=== PATIENT | female | born 1980 | race Caucasian/White ===

== ENCOUNTER 2017-02-04 18:48 | Emergency (ER) | payer OTHER ==
[~2017-02-04] VITALS: Ht 154.9 cm; Wt 110.5 kg
[~2017-02-04 18:48] MED LIST: FIORICET PO; IBUP200C11 PO; ONDA4TAB14 PO
[2017-02-04 19:23] VITALS: Ht 154.9 cm; Wt 110.5 kg
[2017-02-04] MEDS ORDERED: ONDANSETRON 4 MG INJ IV STA (19:44)
[2017-02-04] MEDS ORDERED: morphine 4 MG/ML VIAL IV STA (19:44)
--- NOTE | 2017-02-04 19:48 | ERD ---
ER Documentation Chief Complaint Date/Time DATE: 02/04/17 TIME: 19:46 Chief Complaint NO BM X 1 WEEK. N/V TODAY HPI 26-year-old female presents here in emergency department for complaints of abdominal pain started today and nausea vomiting, patient has no bowel movement for one week. Patient has history of abdominal surgery years ago with a tumor removal. She describes the pain as throbbing, 8/10 scale, accompanied with nausea vomiting. Patient denies any fever or chills. She denies hematuria or dysuria. Patient denies any flank pain. ROS All systems reviewed and are negative except as per history of present illness. Medications Home Meds Active Scripts Ondansetron (Ondansetron Odt) 4 Mg Tab.rapdis, 4 MG PO Q8 Y for NAUSEA AND/OR VOMITING, #30 TAB Prov:BILL HERRERA NP 08/14/16 Acetamin/Butalbital/Caffeine* (Fioricet*) [id number] Tab, 1 TAB PO Q6H Y for PAIN, #30 TAB Prov:BILL HERRERA NP 08/14/16 Reported Medications Ibuprofen* (Advil*) Unknown Strength Capsule, PO Q6H Y for PAIN, CAP 08/14/16 Allergies Allergies: Coded Allergies: No Known Drug Allergy (Verified Allergy, Mild, 12/25/15) PMhx/Soc History of Surgery: Yes (right thigh tumor excision, right abominal surgery ) Anesthesia Reaction: No Hx Neurological Disorder: No Hx Respiratory Disorders: No Hx Cardiac Disorders: No Hx Psychiatric Problems: No Hx Miscellaneous Medical Probl: No Hx Alcohol Use: No Hx Substance Use: No Hx Tobacco Use: No Smoking Status: Never smoker FmHx Family History: No coronary disease, No diabetes, No other Physical Exam Vitals Vital Signs Date Time Temp Pulse Resp B/P Pulse Ox O2 Delivery O2 Flow Rate FiO2 02/04/17 19:23 99.3 95 16 144/75 99 Physical Exam GENERAL: The patient is well developed and appropriate for usual state of health, in no apparent distress. CHEST: Clear to auscultation bilaterally. There are no rales, wheezes or rhonchi. HEART: Regular rate and rhythm. No murmurs, clicks, rubs or gallops. No S3 or S4. ABDOMEN: Soft, generalized tenderness noted. Good bowel sounds. No rebound or guarding. No gross peritonitis. No gross organomegaly or masses. BACK: No midline or flank tenderness. EXTREMITIES: Equal pulses bilaterally. There is no peripheral clubbing, cyanosis or edema. No focal swelling or erythema. Full range of motion. Grossly neurovascularly intact. NEURO: Alert and oriented. Cranial nerves 2-12 intact. Motor strength in all 4 extremities with 5/5 strength. Sensation grossly intact. Normal speech and gait. SKIN: There is no apparent rash or petechia. The skin is warm and dry. HEMATOLOGIC AND LYMPHATIC: There is no evidence of excessive bruising or lymphedema. No gross cervical, axillary, or inguinal lymphadenopathy. Result Diagram: 02/04/17200602/04/172006 Results 24 hrs Laboratory Tests Test 02/04/17 20:07 02/04/17 20:12 White Blood Count 11.210^3/ul Red Blood Count 4.5510^6/ul Hemoglobin 13.2g/dl Hematocrit 39.0% Mean Corpuscular Volume 85.7fl Mean Corpuscular Hemoglobin 29.0pg Mean Corpuscular Hemoglobin Concent 33.8g/dl Red Cell Distribution Width 12.4% Platelet Count 74202^3/UL Mean Platelet Volume 9.2fl Neutrophils % 55.7% Lymphocytes % 33.2% Monocytes % 6.9% Eosinophils % 3.4% Basophils % 0.5% Nucleated Red Blood Cells % 0.0/100WBC Neutrophils # 6.210^3/ul Lymphocytes # 3.710^3/ul Monocytes # 0.810^3/ul Eosinophils # 0.410^3/ul Basophils # 0.110^3/ul Nucleated Red Blood Cells # 0.010^3/ul Sodium Level 140mmol/L Potassium Level 3.5mmol/L Chloride Level 102mmol/L Carbon Dioxide Level 25mmol/L Anion Gap 17 Blood Urea Nitrogen 14mg/dl Creatinine 0.77mg/dl Glucose Level 124mg/dl Calcium Level 9.0mg/dl Total Bilirubin 0.4mg/dl Direct Bilirubin 0.00mg/dl Indirect Bilirubin 0.4mg/dl Aspartate Amino Transf (AST/SGOT) 32IU/L Alanine Aminotransferase (ALT/SGPT) 61IU/L Alkaline Phosphatase 88IU/L Total Protein 7.2g/dl Albumin 4.0g/dl Globulin 3.20g/dl Albumin/Globulin Ratio 1.25 Lipase 51U/L Urine Color LT. YELLOW Urine Clarity CLEAR Urine pH 8.5 Urine Specific [place] 1.015 Urine Ketones NEGATIVE Urine Nitrite NEGATIVE Urine Bilirubin NEGATIVE Urine Urobilinogen 1.0 E.U./dL Urine Leukocyte Esterase TRACE Urine Microscopic RBC 0-2/HPF Urine Microscopic WBC 5-10/HPF Urine Squamous Epithelial Cells MANY Urine Hemoglobin TRACE Urine Glucose NEGATIVE% Urine Total Protein NEGATIVE Current Medications Medications (Trade) Dose Ordered Sig/Marcelle Route PRN Reason Start Time Stop Time Status Last Admin Dose Admin Morphine Sulfate (morphine) 4 mg ONCE STAT IV 02/04/17 19:44 02/04/17 19:46 DC 02/04/17 20:26 Ondansetron HCl (Zofran Inj) 4 mg ONCE STAT IV 02/04/17 19:44 02/04/17 19:46 DC 02/04/17 20:26 Patient was given medication for pain here in emergency department, after treatment, patient verbalized feeling much better. Patient's pain is improved.Normal saline IV bolus was given here in emergency department for rehydration, patient tolerated IV fluids.Patient was given Zofran here in the emergency department. After treatment, patient was able to tolerate po fluids here in the emergency department without any vomiting. There is no signs and symptoms of dehydration. PROCEDURE: CT Abdomen and Pelvis without contrast. CLINICAL INDICATION: Abdominal pain, constipation. TECHNIQUE: A CT scan of the abdomen and pelvis was performed without intravenous contrast. Coronal and sagittal reformatted images were generated. Images were reviewed on a high-resolution PACS workstation. CTDIvol: 22.80 mGy. DLP: 1339.22 mGy-cm. One or more of the following dose reduction techniques were used: - Automated exposure control. - Adjustment of the mA and/or kV according to patient size. - Use of iterative reconstruction technique. COMPARISON: None. FINDINGS: The lung bases are clear. Evaluation of the abdominal and pelvic viscera is limited by the lack of oral and intravenous contrast. The liver is diffusely hypodense, consistent with fatty infiltration. The gallbladder is normal in appearance. The common bile duct is not dilated. The spleen is not enlarged. No pancreatic lesion is identified and there is no pancreatic ductal dilatation. The adrenal glands are unremarkable. The kidneys are normal in size. There is no perinephric fat stranding. No hydronephrosis is seen. No urinary stone is identified. There is a 1.1 cm right retroperitoneal cyst, nonspecific but likely benign. The small and large bowel are normal in caliber. There is no bowel wall thickening. The appendix is normal. The urinary bladder is unremarkable. The pelvic organs are within normal limits. No lymphadenopathy is identified. There is no ascites. No pneumoperitoneum is seen. There are no arterial calcifications. No suspicious osseous lesion is idenitified. IMPRESSION: 1. No inflammation, mass, or lymphadenopathy. 2. Normal appendix. 3. No obstructive uropathy or urinary stone. 4. Fatty infiltration of the liver. RPTAT: HTAR .Martin Calhoun MD, MD Date Time Electronically viewed and signed by .Martin Calhoun MD, on 02/04/2017 21:01 .R/ CC: BILL HERRERA BLUEPRINTER Procedures/MDM Medical Decision Making: Patient's abdominal pain nonspecific at this time, no bowel obstruction noted, no other abdominal emergencies noted at this time. No leukocytosis, no bandemia. Conjunctivae are. There is low suspicion for abdominal emergencies at this time. Patients abdominal exam is normal at this time. Patients radiology exam does not show any abdominal emergencies at this time. There is low suspicion for appendicitis, cholecystitis, abdominal aortic aneurysms or peritonitis at this time. There is low suspicion for sepsis. Patient appears well and is hemodynamically stable. Disposition: Home. Condition: Stable Prescription Zofran, MiraLAX, Colace, tramadol Instructions: Patient is advised to take medications as prescribed. Patient is advised to rest, increase fluid intake and do brat diet for next 1-2 days and progress as tolerated. Patient is advised that if symptoms are worse, severe abdominal pain, uncontrolled vomiting, high fever, severe flank pain, worst signs and symptoms, to return to the emergency department immediately. Otherwise, patient can follow up with primary care doctor in 5-7 days. Departure Diagnosis: Primary Impression: Constipation Constipation type: unspecified constipation type Qualified Code: K59.00 - Constipation, unspecified constipation type Additional Impressions: Abdominal pain Abdominal location: generalized Qualified Code: R10.84 - Generalized abdominal pain Vomiting Vomiting type: unspecified Vomiting Intractability: unspecified Nausea presence: unspecified Qualified Code: R11.10 - Vomiting, intractability of vomiting not specified, presence of nausea not specified, unspecified vomiting type Condition: Stable Patient Instructions: Constipation (Adult) Additional Instructions: Patient is advised to take medications as prescribed. Patient is advised to rest, increase fluid intake and do brat diet for next 1-2 days and progress as tolerated. Patient is advised that if symptoms are worse, severe abdominal pain , uncontrolled vomiting, high fever, severe flank pain, worst signs and symptoms , to return to the emergency department immediately. Otherwise, patient can follow up with primary care doctor in 5-7 days. BILL HERRERA NP Feb 04, 2017 19:48
[2017-02-04 20:22] LABS: ADD SCAN DIFF NO
[2017-02-04 20:28] LABS: BASOPHIL # 0.1 10^3/ul (0.0-0.1); BASOPHILS % 0.5 % (0.0-2.0); EOSINOPHILS # 0.4 10^3/ul (0.0-0.5); EOSINOPHILS % 3.4 % (0.0-7.0); HEMOGLOBIN 13.2 g/dl (12.0-16.0); LYMPHOCYTES # 3.7 10^3/ul (0.8-2.9); LYMPHOCYTES % 33.2 % (15.0-51.0); MEAN CORPUSCULAR HGB CONC 33.8 g/dl (32.0-37.0); MEAN CORPUSCULAR VOLUME 85.7 fl (82.0-101.0); MEAN PLATELET VOLUME 9.2 fl (7.4-10.4); MONOCYTE # 0.8 10^3/ul (0.3-0.9); MONOCYTES % 6.9 % (0.0-11.0); NEUTROPHIL # 6.2 10^3/ul (1.6-7.5); NEUTROPHILS % 55.7 % (39.0-77.0); PLATELET COUNT 333 10^3/UL (140-415); RED BLOOD COUNT 4.55 10^6/ul (4.20-5.40); RED CELL DISTRIBUTION WIDTH 12.4 % (11.5-14.5); WHITE BLOOD COUNT 11.2 10^3/ul (4.8-10.8)
[2017-02-04 20:33] LABS: ADD UMIC YES; URINE BILIRUBIN (Dip) NEGATIVE (NEGATIVE); URINE BLOOD (Dip) TRACE (NEGATIVE); URINE COLOR LT. YELLOW (YELLOW); URINE GLUCOSE (Dip) NEGATIVE (NEGATIVE); URINE KETONES (Dip) NEGATIVE (NEGATIVE); URINE LEUKOCYTE ESTERASE (Dip) TRACE (NEGATIVE); URINE NITRITE (Dip) NEGATIVE (NEGATIVE); URINE TOTAL PROTEIN (Dip) NEGATIVE (NEGATIVE); URINE UROBILINOGEN (Dip) 1.0 E.U./dL (0.1-1.0)
[2017-02-04 20:34] LABS: POTASSIUM 3.5 mmol/L (3.5-5.1)
[2017-02-04 20:36] LABS: BILIRUBIN,INDIRECT 0.4 mg/dl (0-1.1); BILIRUBIN,TOTAL 0.4 mg/dl (0.2-1.3); CREATININE 0.77 mg/dl (0.44-1.00)
[2017-02-04 20:37] LABS: ALBUMIN/GLOBULIN RATIO 1.25; TOTAL PROTEIN 7.2 g/dl (6.1-8.1)
[2017-02-04 20:44] LABS: SQUAMOUS EPITHELIAL CELL,UR MANY; URINE RBCS 0-2 /HPF (0)
--- NOTE | 2017-02-04 21:02 | RADRPT ---
PROCEDURE: CT Abdomen and Pelvis without contrast. CLINICAL INDICATION: Abdominal pain, constipation. TECHNIQUE: A CT scan of the abdomen and pelvis was performed without intravenous contrast. Enrique l and sagittal reformatted images were generated. Images were reviewed on a high-resolution PACS wor kstation. CTDIvol: 22.80 mGy. DLP: 1339.22 mGy-cm. One or more of the following dose reduction techniques were used: - Automated exposure control. - Adjustment of the mA and/or kV according to patient size. - Use of iterative reconstruction technique. COMPARISON: None. FINDINGS: The lung bases are clear. Evaluation of the abdominal and pelvic viscera is limited by the lack of oral and intravenous contra st. The liver is diffusely hypodense, consistent with fatty infiltration. The gallbladder is normal in appearance. The common bile duct is not dilated. The spleen is not enlarged. No pancreatic lesion is identified and there is no pancreatic ductal dilatation. The adrenal glands are unremarkable. The kidneys are normal in size. There is no perinephric fat stranding. No hydronephrosis is seen. No urinary stone is identified. There is a 1.1 cm right retroperitoneal cyst, nonspecific but likely b enign. The small and large bowel are normal in caliber. There is no bowel wall thickening. The appendix is normal. The urinary bladder is unremarkable. The pelvic organs are within normal limits. No lymphadenopathy is identified. There is no ascites. No pneumoperitoneum is seen. There are no art erial calcifications. No suspicious osseous lesion is idenitified. IMPRESSION: 1. No inflammation, mass, or lymphadenopathy. 2. Normal appendix. 3. No obstructive uropathy or urinary stone. 4. Fatty infiltration of the liver. RPTAT: HTAR .Martin Calhoun MD, MD Date Time Electronically viewed and signed by .Martin Calhoun MD, on 02/04/2017 21:01 .R/
[2017-02-04] MEDS ORDERED: POLY17PO6 PO (21:16)
[2017-02-04] MEDS ORDERED: TRAM50TA2 PO (21:16)
[2017-02-04] MEDS ORDERED: ONDA4TAB14 PO (21:16)
[2017-02-04] MEDS ORDERED: DOCU-144 PO (21:16)
[2017-02-04 21:39] VITALS: BP 132/75; PULSE 85; RESP 16; TEMP 99.3
== END 2017-02-04 21:40 | disposition home or self-care (01) ==
LOC: FTE 18:48
DX: K59.00 Constipation, unspecified (principal); R10.84 Generalized abdominal pain; R11.10 Vomiting, unspecified
CPT/HCPCS: 36415; 74176; 80053; 81001; 81003; 83690; 85025; 96374; 96375; J2270; J2405; Z7502

== ENCOUNTER 2018-01-10 14:06 | Emergency (ER) | END 2018-01-10 20:30 | disposition home or self-care (01) ==

== ENCOUNTER 2018-03-03 15:30 | Emergency (ER) | END 2018-03-03 17:05 | disposition home or self-care (01) ==

== ENCOUNTER 2018-07-01 08:15 | Emergency (ER) | END 2018-07-01 10:58 | disposition home or self-care (01) ==

== ENCOUNTER 2018-10-22 18:23 | Emergency (ER) | payer OTHER ==
[~2018-10-22] VITALS: Ht 154.9 cm; Wt 107.3 kg
[~2018-10-22 18:23] MED LIST changes: +ABCC1C PO; +AMOX1TAB10 PO; +DOCU-144 PO; +IBUP800T48 PO; +LORA-441 PO; +LORA1TAB PO; +POLY17PO6 PO; +TRAM50TA2 PO
[2018-10-22 18:34] VITALS: BP 140/81; PULSE 102; RESP 20; Ht 154.9 cm; Wt 107.3 kg
--- NOTE | 2018-10-22 20:34 | ERD ---
ER Documentation Chief Complaint Chief Complaint c/o generalize body weakness x 1 week, poor appetite HPI This is a 37-year-old female who presents here in the emergency department with multiple complaints including loss of appetite, generalized weakness for about a week. Insisting blood works. LMP: Stated that it was a week ago. A0. Denies headache, head injury, loss of consciousness, dizziness, neck pain, neck stiffness, throat pain, difficulty swallowing, difficulty breathing lying flat, shoulder pain, chest pain, back pain, abdominal pain, nausea, vomiting, constipation, diarrhea, urinary symptoms, or possibility being , loss of bowel and bladder control, trauma, injury, falls, difficulty w alking due to pain, numbness or tingling sensation, calf pain, recent travel, recent major surgery in the last 3 weeks, calf pain, recent long travel, recent exposure to any illness, recent antibiotic use in the last 3 months, fever, chills, seizures. Past medical history: Denies. Surgical history: Denies. Social: Denies smoking, use of alcoholic beverages, use of illegal drugs. ROS All systems reviewed and are negative except as per history of present illness. Medications Home Meds Active Scripts Acetaminophen* (Tylophen*) 500 Mg Capsule, 1 CAP PO Q6H PRN for PAIN AND OR ELEVATED TEMP, #20 CAP Prov:PASILAOSMIN TAMAR F 10/22/18 Cephalexin* (Keflex*) 500 Mg Capsule, 500 MG PO TID for 7 Days, CAP Prov:PASILABANOSMINAR F 10/22/18 Lorazepam* (Lorazepam*) 1 Mg Tablet, 1 MG PO Q8H PRN for ANXIETY, #10 TAB Prov:BEBETO MOMIN PA-C 07/01/18 Lorazepam* (Ativan*) 0.5 Mg Tablet, 0.5 MG PO Q8, #10 TAB Prov:OSMAN GUARDADO PA-C 01/10/18 Ylrahuzdqhenu-Bctzxxprla-Ohpiqbeu-Codeine* (Fioricet w/Codeine*) [id number] Cap, 1 CAP PO Q4H PRN for PAIN LEVEL 1-5, #10 CAP Prov:PASILAOSMIN TAMAR F 06/24/17 Ibuprofen* (Motrin*) 800 Mg Tab, 800 MG PO Q8 PRN for PAIN AND OR ELEVATED TEMP, #30 TAB Prov:EUNICE YANCEY 06/24/17 Amoxicillin/Potassium Clav (Amox-Clav 875-125 mg Tablet) 875-125 mg Tab, 1 TAB PO BID for 7 Days, #14 TAB Prov:EUNICE YANCEY 06/24/17 Tramadol HCl (Tramadol HCl) 50 Mg Tablet, 50 MG PO Q6 PRN for SEVERE PAIN LEVEL 7-10, #20 TAB Prov:BILL HERRERA NP 02/04/17 Ondansetron (Ondansetron Odt) 4 Mg Tab.rapdis, 4 MG PO Q8 PRN for NAUSEA AND/OR VOMITING, #30 TAB Prov:BILL HERRERA NP 02/04/17 Docusate Sodium* (Colace*) 100 Mg Capsule, 100 MG PO TID, #30 CAP Prov:BILL HERRERA NP 02/04/17 Polyethylene Glycol* (Miralax*) 17 Gm Powd.pack, 17 GM PO DAILY, #7 Prov:BILL HERRERA NP 02/04/17 Ondansetron (Ondansetron Odt) 4 Mg Tab.rapdis, 4 MG PO Q8 PRN for NAUSEA AND/OR VOMITING, #30 TAB Prov:BILL HERRERA NP 08/14/16 Acetamin/Butalbital/Caffeine* (Fioricet*) [id number] Tab, 1 TAB PO Q6H PRN for PAIN, #30 TAB Prov:BILL HERRERA NP 08/14/16 Reported Medications Ibuprofen* (Advil*) Unknown Strength Capsule, PO Q6H PRN for PAIN, CAP 08/14/16 Allergies Allergies: Coded Allergies: No Known Drug Allergy (Verified Allergy, Mild, 10/22/18) PMhx/Soc History of Surgery: Yes (right thigh tumor excision, right abominal surgery ) Anesthesia Reaction: No Hx Neurological Disorder: No Hx Respiratory Disorders: No Hx Cardiac Disorders: No Hx Psychiatric Problems: No Hx Miscellaneous Medical Probl: Yes (DM) Hx Alcohol Use: No Hx Substance Use: No Hx Tobacco Use: No Smoking Status: Never smoker Physical Exam Vitals Vital Signs Date Temp Pulse Resp B/P (MAP) Pulse Ox O2 O2 Flow FiO2 Time Delivery Rate 10/22/18 99.6 102 20 140/81 98 18:34 (100) Physical Exam Const: No acute distress Head: Atraumatic Eyes: Normal Conjunctiva ENT: Normal External Ears, Nose and Mouth. Neck: Full range of motion. No meningismus. No nuchal rigidity. No signs of meningeal irritation. Resp: Clear to auscultation bilaterally Cardio: Regular rate and rhythm, no murmurs Abd: Soft, non tender, non distended. Normal bowel sounds Skin: No petechiae or rashes. No vesicular lesions. No skin tenting. No signs of dehydration. No hair loss noted. Back: No midline or flank tenderness Ext: No cyanosis, or edema Neur: Awake and alert. No neurological deficits. Psych: Normal Mood and Affect. Denies auditory/visual halluc inations/delusions. Not suicidal. Not homicidal. Has the capacity to decide for herself. Has good support system at home. Result Diagram: 10/22/18201610/22/182016 Results 24 hrs Laboratory Tests Test 10/22/18 20:17 10/22/18 20:39 White Blood Count 10.8 10^3/ul Red Blood Count 5.09 10^6/ul Hemoglobin 14.7 g/dl Hematocrit 44.2 % Mean Corpuscular Volume 86.8 fl Mean Corpuscular Hemoglobin 28.9 pg Mean Corpuscular Hemoglobin Concent 33.3 g/dl Red Cell Distribution Width 12.0 % Platelet Count 422 10^3/UL Mean Platelet Volume 9.1 fl Immature Granulocytes % 0.400 % Neutrophils % 48.3 % Lymphocytes % 41.6 % Monocytes % 4.9 % Eosinophils % 4.1 % Basophils % 0.7 % Nucleated Red Blood Cells % 0.0 /100WBC Immature Granulocytes # 0.040 10^3/ul Neutrophils # 5.2 10^3/ul Lymphocytes # 4.5 10^3/ul Monocytes # 0.5 10^3/ul Eosinophils # 0.4 10^3/ul Basophils # 0.1 10^3/ul Nucleated Red Blood Cells # 0.0 10^3/ul Urine Color YELLOW Urine Clarity CLOUDY Urine pH 7.0 Urine Specific [place] 1.023 Urine Ketones NEGATIVE mg/dL Urine Nitrite NEGATIVE mg/dL Urine Bilirubin NEGATIVE mg/dL Urine Urobilinogen 2+ mg/dL Urine Leukocyte Esterase 2+ Julio Cesar/ul Urine Microscopic RBC 21 /HPF Urine Microscopic WBC 25 /HPF Urine Squamous Epithelial Cells MANY /HPF Urine Bacteria FEW /HPF Urine Mucus MODERATE /HPF Urine Hemoglobin 1+ mg/dL Urine Glucose NEGATIVE mg/dL Urine Total Protein 1+ mg/dl Sodium Level 144 mmol/L Potassium Level 4.4 mmol/L Chloride Level 102 mmol/L Carbon Dioxide Level 29 mmol/L Anion Gap 13 Blood Urea Nitrogen 11 mg/dl Creatinine 0.55 mg/dl Est Glomerular Filtrat Rate mL/min > 60 mL/min Glucose Level 106 mg/dl Calcium Level 9.9 mg/dl Total Bilirubin 0.5 mg/dl Direct Bilirubin 0.00 mg/dl Indirect Bilirubin 0.5 mg/dl Aspartate Amino Transf (AST/SGOT) 37 IU/L Alanine Aminotransferase (ALT/SGPT) 53 IU/L Alkaline Phosphatase 105 IU/L Total Protein 7.4 g/dl Albumin 4.6 g/dl Globulin 2.80 g/dl Albumin/Globulin Ratio 1.64 Thyroid Stimulating Hormone (TSH) 3.620 MIU/L Free Thyroxine 0.96 ng/dl Free Thyroxine Index 2.67 ug/ml Thyroxine (T4) 9.5 ug/dl Free Triiodothyronine (T3) pg/mL 3.80 pg/ml Triiodothyronine (T3) Uptake 28.1 % POC Beta HCG, Qualitative NEGATIVE Procedures/MDM Diagnostic tests: POC urine : Negative. Urinalysis: UTI. Culture urine: Sent. Blood works: Reviewed. Treatment: Refuses. Re-evaluation: Stated that she feels much better at this time and that she is ready to go home. Differential diagnosis I have low suspicion for sepsis, thyroid storm, thyroid toxicosis, Henry's disease, hypoglycemia, hyperglycemia. Final diagnosis: UTI. Prescription: Keflex. Tylenol. Follow-up with PCP in the next 24-48 hours. PCP to refer patient to milk pickup driver in the next 3-4 days. Come back here in the emergency department for any new symptoms or any worsening symptoms. All questions and concerns were answered. Patient and family members verbalized understanding and agreed with plan of care. Hemodynamically stable on discharge. Departure Diagnosis: Primary Impression: UTI (urinary tract infection) Condition: Stable Additional Instructions: Follow-up with PCP in the next 24-48 hours. PCP to refer patient to milk pickup driver in the next 3-4 days. Come back here in the emergency department for any new symptoms or any worsening symptoms. EUNICE YANCEY Oct 22, 2018 20:34
[2018-10-22] MEDS ORDERED: ACET500C5 PO (22:18)
[2018-10-22] MEDS ORDERED: CEPH-443 PO (22:18)
== END 2018-10-22 22:35 | disposition home or self-care (01) ==
LOC: FTE 18:23
DX: N39.0 Urinary tract infection, site not specified (principal); E11.9 Type 2 diabetes mellitus without complications
CPT/HCPCS: 80053; 81001; 81025; 84436; 84439; 84443; 84479; 84481; 85025; 87086; 99283

== ENCOUNTER 2019-01-09 09:44 | Emergency (ER) | payer OTHER ==
[~2019-01-09] VITALS: Ht 157.5 cm; Wt 108.7 kg
[~2019-01-09 09:44] MED LIST changes: +ACET500C5 PO; +CEPH-443 PO; +CYCL10TA7 PO; +MECL12.574 PO
[2019-01-09 09:47] VITALS: Ht 157.5 cm; Wt 108.7 kg
[2019-01-09] MEDS ORDERED: traMADol 50 MG TAB PO ONE ×2 (11:00→13:30)
[2019-01-09] MEDS ORDERED: GUAIFENESIN/DM 5ML CUP PO ONE (11:00)
[2019-01-09] MEDS ORDERED: ALBUTEROL/IPRATROPIUM (NEB) 3 ML AMP HHN STA (11:35)
--- NOTE | 2019-01-09 11:37 | ERD ---
ER Documentation Chief Complaint Chief Complaint cough and chest congestion x 2 weeks HPI 38-year-old female with past medical history of pre-diabetes with no other surgical history who presents with a 2-week complaint of persistent cough and chest congestion. She reports subjective fevers and states she feels she is wheezing. She also just describes chest discomfort which is pleuritic in nature made worse by deep breathing and cough. She states cough is worse at night. Reports apneic spells at night but has never been diagnosed with ANNE. These symptoms proceed her current complaint of cough and congestion chest congestion, stating she has been experiencing apneic spells at night before she will wake up middle night for about a year. Has not been referred for outpatient sleep study. She denies history of smoking. She has not been on OCP's. She has not travelled recently or been immobilized. She otherwise denies BLANCAS, chest pain, nausea or vomiting, abdominal pain, diarrhea. ROS All systems reviewed and are negative except as per history of present illness. Medications Home Meds Active Scripts Fluticasone Propionate* (Flovent* HFA 110) 12 Gm Inha, 1 PUFF INHALATION BID for 14 Days, #1 INHALER Prov:LALY FITCH PA-C 01/09/19 Guaifenesin* (Robitussin*) 100 Mg/5 Ml Syrup, 200 MG PO Q6H PRN for COUGH for 7 Days, ML Prov:LALY FITCH PA-C 01/09/19 Cyclobenzaprine Hcl* (Cyclobenzaprine Hcl*) 10 Mg Tablet, 10 MG PO TID, #15 TAB Prov:JUANA PANTOJA PA-C 12/14/18 Meclizine Hcl* (Antivert*) 12.5 Mg Tab, 12.5 MG PO Q6H PRN for DIZZINESS, #20 TAB Prov:JUANA PANTOJA PA-C 12/14/18 Acetaminophen* (Tylophen*) 500 Mg Capsule, 1 CAP PO Q6H PRN for PAIN AND OR ELEVATED TEMP, #20 CAP Prov:PASILABAN,KLAR F 10/22/18 Cephalexin* (Keflex*) 500 Mg Capsule, 500 MG PO TID for 7 Days, CAP Prov:PASILABAN,KLAR F 10/22/18 Lorazepam* (Lorazepam*) 1 Mg Tablet, 1 MG PO Q8H PRN for ANXIETY, #10 TAB Prov:BEBETO MOMIN PA-C 07/01/18 Lorazepam* (Ativan*) 0.5 Mg Tablet, 0.5 MG PO Q8, #10 TAB Prov:OSMAN GUARDADO PA-C 01/10/18 Lrtogrsvuqlzu-Luxldefyld-Ugidtdul-Codeine* (Fioricet w/Codeine*) [id number] Cap, 1 CAP PO Q4H PRN for PAIN LEVEL 1-5, #10 CAP Prov:EUNICE YANCEY 06/24/17 Ibuprofen* (Motrin*) 800 Mg Tab, 800 MG PO Q8 PRN for PAIN AND OR ELEVATED TEMP, #30 TAB Prov:EUNICE YANCEY 06/24/17 Amoxicillin/Potassium Clav (Amox-Clav 875-125 mg Tablet) 875-125 mg Tab, 1 TAB PO BID for 7 Days, #14 TAB Prov:EUNICE YANCEY 06/24/17 Tramadol HCl (Tramadol HCl) 50 Mg Tablet, 50 MG PO Q6 PRN for SEVERE PAIN LEVEL 7-10, #20 TAB Prov:BILL HERRERA NP 02/04/17 Ondansetron (Ondansetron Odt) 4 Mg Tab.rapdis, 4 MG PO Q8 PRN for NAUSEA AND/OR VOMITING, #30 TAB Prov:BILL HERRERA NP 02/04/17 Docusate Sodium* (Colace*) 100 Mg Capsule, 100 MG PO TID, #30 CAP Prov:BILL HERRERA NP 02/04/17 Polyethylene Glycol* (Miralax*) 17 Gm Powd.pack, 17 GM PO DAILY, #7 Prov:BILL HERRERA NP 02/04/17 Ondansetron (Ondansetron Odt) 4 Mg Tab.rapdis, 4 MG PO Q8 PRN for NAUSEA AND/OR VOMITING, #30 TAB Prov:BILL HERRERA NP 08/14/16 Acetamin/Butalbital/Caffeine* (Fioricet*) [id number] Tab, 1 TAB PO Q6H PRN for PAIN, #30 TAB Prov:BILL HERRERA MANUFACTURING TECH[employer]OLOGIST 08/14/16 Reported Medications Ibuprofen* (Advil*) Unknown Strength Capsule, PO Q6H PRN for PAIN, CAP 08/14/16 Allergies Allergies: Coded Allergies: No Known Drug Allergy (Verified Allergy, Mild, 12/14/18) PMhx/Soc History of Surgery: Yes (right thigh tumor excision, right abominal surgery ) Anesthesia Reaction: No Hx Neurological Disorder: No Hx Respiratory Disorders: No Hx Cardiac Disorders: No Hx Psychiatric Problems: No Hx Miscellaneous Medical Probl: Yes (DM) Hx Alcohol Use: No Hx Substance Use: No Hx Tobacco Use: No Smoking Status: Never smoker FmHx Family History: No diabetes, No coronary disease, No other Physical Exam Vitals Vital Signs Date Temp Pulse Resp B/P (MAP) Pulse Ox O2 O2 Flow FiO2 Time Delivery Rate 01/09/19 98.1 103 17 110/68 97 14:18 (82) 01/09/19 88 19 96 21 13:15 01/09/19 83 18 95 21 12:20 01/09/19 98.8 98 18 121/71 97 09:47 (88) Physical Exam I have reviewed the triage vital signs. Const: Well nourished, well developed, appears stated age Eyes: PERRL, no conjunctival injection HENT: NCAT, Neck supple without meningismus CV: RRR, Warm, well-perfused extremities RESP: some upper air way sounds, not wheezing classically, moving air well, no rales, rhonci GI: soft, non-tender, non-distended, no masses MSK: No gross deformities appreciated Skin: Warm, dry. No rashes Neuro: Alert, button bradder II-XII grossly intact. Sensation and motor function of e xtremities grossly intact. Psych: Appropriate mood and affect. Results 24 hrs Current Medications Medications Dose Sig/Marcelle Start Time Status Last (Trade) Ordered Route PRN Stop Time Admin Dose Reason Admin 10 ml ONCE ONCE 01/09/19 DC 01/09/19 Guaifenesin/ PO 11:00 01/09/19 11:18 Dextromethorp 11:01 romo (Robitussin Dm Liquid Cup) Tramadol 50 mg ONCE ONCE 01/09/19 DC 01/09/19 HCl PO 11:00 01/09/19 11:17 (Ultram) 13:41 Albuterol/ 3 ml ONCE STAT 01/09/19 DC 01/09/19 Ipratropium HHN 11:35 01/09/19 12:20 (Duoneb) 11:37 1.25 mg ONCE ONCE 01/09/19 DC 01/09/19 Levalbuterol HHN 13:00 01/09/19 13:14 (Xopenex 13:01 Neb) Tramadol 50 mg ONCE ONCE 01/09/19 DC HCl PO 13:30 01/09/19 (Ultram) 13:31 Procedures/MDM The patient's clinical presentation is very consistent with an acute viral syndrome. No evidence of pneumonia on xray. Her oxygen saturations have been stable. No fevers. No risk facors The patient is well-appearing without respiratory distress. Normal oxygen saturation. X-ray imaging not indicated. No indication for Tamiflu. The patient does not exhibit any clinical signs or symptoms concerning for serious bacterial infection or systemic illness. Based on history and clinical exam findings the patient does not appear to have evidence of pneumonia, strep pharyngitis, urinary tract infection, bacteremia, sepsis, or meningitis. PE is highly unlikely given symptoms and work up. For these reasons I do not believe it is necessary to obtain laboratory testing or diagnostic imaging. I believe it would be appropriate for symptom control, and close outpatient primary care follow-up. ED course: antitussive nebs pain control Chest xray without acute findings We discussed follow up with the patient's primary care doctor within 24 to 48 hours as needed. We also discussed return to the emergency room for worsening symptoms or worsening condition. She has bee instructed to follow up closely with PMD regarding ANNE/OHS workup. Departure Diagnosis: Primary Impression: Viral syndrome Condition: Stable Patient Instructions: Adult Self-Care for Colds, Sleep Apnea, Obstructive (Adult) Referrals: [facility] LALY FITCH PA-C Jan 09, 2019 11:36 BALA ONEIL DO Jan 12, 2019 20:09
[2019-01-09] MEDS ORDERED: GUAI-637 PO (12:05)
[2019-01-09] MEDS ORDERED: LEVALBUTEROL (NEB) 1.25 MG/0.5 ML AMP HHN ONE (13:00)
[2019-01-09] MEDS ORDERED: FLOV110 INHALATION (13:50)
[2019-01-09 14:18] VITALS: BP 110/68; PULSE 103; RESP 17
== END 2019-01-09 14:19 | disposition home or self-care (01) ==
LOC: FTE 09:44
DX: B34.9 Viral infection, unspecified (principal); E11.9 Type 2 diabetes mellitus without complications
CPT/HCPCS: 71046; 94640; 94664; Z7502; Z7610

== ENCOUNTER 2019-04-30 18:55 | Emergency (ER) | payer OTHER ==
[~2019-04-30] VITALS: Ht 154.9 cm; Wt 108.8 kg
[~2019-04-30 18:55] MED LIST changes: +FLOV110 INHALATION; +GUAI-637 PO
[2019-04-30 18:59] VITALS: Ht 154.9 cm; Wt 108.8 kg
[2019-04-30] MEDS ORDERED: SOD CHLORIDE 0.9% 1,000 ML IV STA (21:10)
[2019-04-30] MEDS ORDERED: ONDANSETRON 4 MG INJ IV STA (21:10)
[2019-04-30] MEDS ORDERED: MECL12.574 PO (22:26)
[2019-04-30] MEDS ORDERED: LORAZEPAM 0.5 MG TAB PO ONE (22:30)
--- NOTE | 2019-04-30 22:32 | ERD ---
ER Documentation Chief Complaint Chief Complaint dizziness x 3 epsiodes today. HPI This is a 38-year-old woman complaining of 3 episodes of dizziness described as a room spinning sensation and feeling like she is going to faint. She states episodes occurred at 7 AM, 2 PM, 5 PM and lasted for a few minutes and then resolved. She does have a history of anxiety and states she also feels stressed and anxious but has not been using a medication that her psychiatrist recently prescribed because it has not been working (she does not recall the name of the medication). She denies loss of consciousness, no chest pain or shortness of breath, no abdominal pain, no dysuria or hematuria, no chest pain or shortness of breath. ROS All systems reviewed and are negative except as per history of present illness. Medications Home Meds Active Scripts Meclizine Hcl* (Antivert*) 12.5 Mg Tab, 25 MG PO TID PRN for DIZZINESS, #15 TAB Prov:LATRICE FISCHER MD 04/30/19 Fluticasone Propionate* (Flovent* HFA 110) 12 Gm Inha, 1 PUFF INHALATION BID for 14 Days, #1 INHALER Prov:LALY FITCH PA-C 01/09/19 Guaifenesin* (Robitussin*) 100 Mg/5 Ml Syrup, 200 MG PO Q6H PRN for COUGH for 7 Days, ML Prov:LALY FITCH PA-C 01/09/19 Cyclobenzaprine Hcl* (Cyclobenzaprine Hcl*) 10 Mg Tablet, 10 MG PO TID, #15 TAB Prov:JUANA PANTOJA PA-C 12/14/18 Meclizine Hcl* (Antivert*) 12.5 Mg Tab, 12.5 MG PO Q6H PRN for DIZZINESS, #20 TAB Prov:JUANA PANTOJA PA-C 12/14/18 Acetaminophen* (Tylophen*) 500 Mg Capsule, 1 CAP PO Q6H PRN for PAIN AND OR ELEVATED TEMP, #20 CAP Prov:PASILABANKLAR F 10/22/18 Cephalexin* (Keflex*) 500 Mg Capsule, 500 MG PO TID for 7 Days, CAP Prov:PASILABANOSMINAR F 10/22/18 Lorazepam* (Lorazepam*) 1 Mg Tablet, 1 MG PO Q8H PRN for ANXIETY, #10 TAB Prov:BEBETO MOMIN PA-C 07/01/18 Lorazepam* (Ativan*) 0.5 Mg Tablet, 0.5 MG PO Q8, #10 TAB Prov:OSMAN GUARDADO PA-C 01/10/18 Nswjbrdpjivaj-Yyicnrqlaz-Lscwkjyy-Codeine* (Fioricet w/Codeine*) [id number] Cap, 1 CAP PO Q4H PRN for PAIN LEVEL 1-5, #10 CAP Prov:EUNICE YANCEY 06/24/17 Ibuprofen* (Motrin*) 800 Mg Tab, 800 MG PO Q8 PRN for PAIN AND OR ELEVATED TEMP, #30 TAB Prov:EUNICE YANCEY 06/24/17 Amoxicillin/Potassium Clav (Amox-Clav 875-125 mg Tablet) 875-125 mg Tab, 1 TAB PO BID for 7 Days, #14 TAB Prov:EUNICE YANCEY 06/24/17 Tramadol HCl (Tramadol HCl) 50 Mg Tablet, 50 MG PO Q6 PRN for SEVERE PAIN LEVEL 7-10, #20 TAB Prov:BILL HERRERA NP 02/04/17 Ondansetron (Ondansetron Odt) 4 Mg Tab.rapdis, 4 MG PO Q8 PRN for NAUSEA AND/OR VOMITING, #30 TAB Prov:BILL HERRERA NP 02/04/17 Docusate Sodium* (Colace*) 100 Mg Capsule, 100 MG PO TID, #30 CAP Prov:BILL HERRERA NP 02/04/17 Polyethylene Glycol* (Miralax*) 17 Gm Powd.pack, 17 GM PO DAILY, #7 Prov:BILL HERRERA NP 02/04/17 Ondansetron (Ondansetron Odt) 4 Mg Tab.rapdis, 4 MG PO Q8 PRN for NAUSEA AND/OR VOMITING, #30 TAB Prov:BILL HERRERA NP 08/14/16 Acetamin/Butalbital/Caffeine* (Fioricet*) [id number] Tab, 1 TAB PO Q6H PRN for PAIN, #30 TAB Prov:BILL HERRERA [employer] 08/14/16 Reported Medications Ibuprofen* (Advil*) Unknown Strength Capsule, PO Q6H PRN for PAIN, CAP 08/14/16 Allergies Allergies: Coded Allergies: No Known Drug Allergy (Verified Allergy, Mild, 12/14/18) PMhx/Soc Obesity, anxiety, diabetes mellitus History of Surgery: Yes (right thigh tumor excision, right abominal surgery ) Anesthesia Reaction: No Hx Neurological Disorder: No Hx Respiratory Disorders: No Hx Cardiac Disorders: No Hx Psychiatric Problems: No Hx Miscellaneous Medical Probl: Yes (DM) Hx Alcohol Use: No Hx Substance Use: No Hx Tobacco Use: No Physical Exam Vitals Vital Signs Date Temp Pulse Resp B/P (MAP) Pulse Ox O2 O2 Flow FiO2 Time Delivery Rate 04/30/19 98.9 97 18 138/63 99 18:59 (88) Physical Exam GENERAL: Well-developed, well-nourished, well-hydrated appears anxious, afebrile HEENT: Moist mucous membranes, pink conjunctiva, no cervical spine tenderness or step-off deformities, no goiter, no jaundice or icterus, extraocular movements intact without pain. No submandibular induration, and no pharyngeal erythema NEURO: Alert and oriented 3, cranial nerves II through XII intact bilaterally, pupils equal round reactive to light, no focal deficits or facial asymmetry, sensation intact distally Strength 5/5 in upper and lower extremities bilaterally CARDIAC: Regular rate and rhythm, no murmurs rubs or gallops LUNGS: Clear bilaterally no wheezing crackles or stridor PSYCH: Anxious itability Result Diagram: 04/30/19211904/30/192119 Results 24 hrs Laboratory Tests Test 04/30/19 20:21 04/30/19 21:20 04/30/19 21:32 Bedside Glucose 214 mg/dL White Blood Count 10.9 10^3/ul Red Blood Count 4.72 10^6/ul Hemoglobin 13.4 g/dl Hematocrit 40.6 % Mean Corpuscular Volume 86.0 fl Mean Corpuscular Hemoglobin 28.4 pg Mean Corpuscular 33.0 g/dl Hemoglobin Concent Red Cell Distribution Width 12.1 % Platelet Count 370 10^3/UL Mean Platelet Volume 9.1 fl Immature Granulocytes % 0.300 % Neutrophils % 51.9 % Lymphocytes % 37.4 % Monocytes % 7.0 % Eosinophils % 2.8 % Basophils % 0.6 % Nucleated Red Blood Cells % 0.0 /100WBC Immature Granulocytes # 0.030 10^3/ul Neutrophils # 5.7 10^3/ul Lymphocytes # 4.1 10^3/ul Monocytes # 0.8 10^3/ul Eosinophils # 0.3 10^3/ul Basophils # 0.1 10^3/ul Nucleated Red Blood Cells # 0.0 10^3/ul Urine Color YELLOW Urine Clarity SLIGHTLY CLOUDY Urine pH 8.0 Urine Specific [place] 1.020 Urine Ketones NEGATIVE mg/dL Urine Nitrite NEGATIVE mg/dL Urine Bilirubin NEGATIVE mg/dL Urine Urobilinogen 1+ mg/dL Urine Leukocyte Esterase NEGATIVE Julio Cesar/ul Urine Microscopic RBC 4 /HPF Urine Microscopic WBC 2 /HPF Urine Squamous Epithelial Cells FEW /HPF Urine Bacteria FEW /HPF Urine Hemoglobin NEGATIVE mg/dL Urine Glucose 3+ mg/dL Urine Total Protein NEGATIVE mg/dl Sodium Level 139 mmol/L Potassium Level 3.8 mmol/L Chloride Level 106 mmol/L Carbon Dioxide Level 24 mmol/L Anion Gap 9 Blood Urea Nitrogen 11 mg/dl Creatinine 0.56 mg/dl Est Glomerular Filtrat > 60 mL/min Rate mL/min Glucose Level 162 mg/dl Calcium Level 9.2 mg/dl Total Bilirubin 0.8 mg/dl Direct Bilirubin 0.00 mg/dl Indirect Bilirubin 0.8 mg/dl Aspartate Amino Transf (AST/SGOT) 29 IU/L Alanine 35 IU/L Aminotransferase (ALT/SGPT) Alkaline Phosphatase 80 IU/L Troponin I < 0.012 ng/ml Total Protein 7.6 g/dl Albumin 4.2 g/dl Globulin 3.40 g/dl Albumin/Globulin Ratio 1.23 Lipase 51 U/L POC Beta HCG, Qualitative NEGATIVE Current Medications Medications Dose Sig/Marcelle Start Time Status Last (Trade) Ordered Route PRN Stop Time Admin Dose Reason Admin Sodium 1,000 ml @ Q1H STAT 04/30/19 DC 04/30/19 Chloride 1,000 mls/hr IV 21:10 21:41 04/30/19 22:09 Ondansetron 4 mg ONCE STAT 04/30/19 DC 04/30/19 HCl (Zofran IV 21:10 21:42 Inj) 04/30/19 21:11 Lorazepam 0.5 mg ONCE ONCE 04/30/19 (Ativan) PO 22:30 04/30/19 22:31 Procedures/MDM IV line was established patient was placed on satellite project site monitor rhythm strip revealed a sinus rhythm at about 80 bpm with upright P and T waves. Patient was afebrile I administered 1 L normal saline IV and Zofran 4 mg IV for dizziness. EKG performed, read by me revealed a normal sinus rhythm at 89 bpm, normal axis, narrow QRS complex, no concerning ST elevations or depressions noted CBC and electrolytes are normal, liver function tests were normal, troponin was negative, urine analysis revealed urine glucose but no signs of infection. Patient's vital signs remained normal although for continued symptoms including anxiety I administer lorazepam 0.5 mg p.o. x1 Differential diagnoses considered, included but not limited to acute coronary syndrome, pulmonary embolism, aortic dissection, abdominal aortic aneurysm, sepsis, stroke, meningitis, encephalitis, pneumonia, appendicitis, cholecystitis, bowel obstruction, pyelonephritis, nephrolithiasis, cystitis, as well as metabolic, hematologic, and electrolyte abnormalities. As well as abscess, cellulitis, fractures, and dislocations. Patient feels much better at this time, and vital signs are normal, symptoms have improved. I did give strict instructions to return to the ED if symptoms continue or worsen, patient will otherwise follow-up with primary care physician. Patient understood instructions and agreed to plan. Disclaimer: Inadvertent spelling and grammatical errors are likely due to EHR/dictation software use and do not reflect on the overall quality of patient care. Also, please note that the electronic time recorded on this note does not necessarily reflect the actual time of the patient encounter. Departure Diagnosis: Primary Impression: Dizziness Additional Impressions: Acute anxiety Vertigo Condition: Good Patient Instructions: Anxiety Reaction, Dizziness, Unk Cause LATRICE FISCHER MD Apr 30, 2019 22:32
[2019-04-30 23:56] VITALS: BP 129/74; PULSE 76; RESP 20
== END 2019-04-30 23:58 | disposition home or self-care (01) ==
LOC: E/R 18:55
DX: R42 Dizziness and giddiness (principal); E11.9 Type 2 diabetes mellitus without complications; F41.9 Anxiety disorder, unspecified; E66.9 Obesity, unspecified; Z68.42 Body mass index [BMI] 45.0-49.9, adult
CPT/HCPCS: 36415; 80053; 81001; 81025; 82962; 83690; 84484; 85025; 93005; 96374; J2405; J7030; Z7502; Z7610; 81003